=== PATIENT | female | born 1950 | race Caucasian/White ===

== ENCOUNTER → 2020-09-27 | Outpatient (CLI) | payer MEDICARE ==
[2014-07-18 18:20] VITALS: BP 139/66
--- NOTE | 2020-09-27 11:22 | RAD ---
Examination: Left Lower Extremity Venous Doppler Ultrasound History: pain Comparison: None Procedure: Man scale, color flow 2D and spectal waveform analysis images are obtained with and without compression in the area of the common femoral vein, superficial femoral vein - femoral vein junction, main femoral vein (superficial femoral vein) and popliteal vein. Veins of the proximal calf are also imaged. Findings: There is normal duplex flow, color flow and compressibility of all visualized vein segments. No evidence of deep venous thrombus is present. There is echogenicity identified in the greater saphenous vein from the level of the knee to the mid calf region likely superficial vein thrombosis. Impression: 1.No evidence of DVT in the visualized left lower extremity venous system. 2. Superficial vein thrombosis identified in the greater saphenous vein below the knee. Electronically signed by: Richy Cervantes MD (09/27/2020 11:19 AM) [id number]
== END ==
LOC: US 10:03
PROVIDERS: ATTEND Family Medicine
DX: I82.812 Embolism and thrombosis of superficial veins of left lower extremity (principal)
CPT/HCPCS: 93971

== ENCOUNTER → 2020-10-07 | Outpatient (CLI) | payer MEDICARE ==
[2014-07-18 18:20] VITALS: BP 139/66
--- NOTE | 2020-10-07 13:36 | RAD ---
Left lower extremity venous Doppler ultrasound History: Reason: PAIN IN LEFT LEG / Spl. Instructions: / History: Comparison: None. Procedure: Color flow Doppler, Doppler spectral analysis, and 2D images are obtained with and without compression in the area of the common femoral vein, superficial femoral vein - femoral vein junction, main femoral vein (superficial femoral vein) and popliteal vein. Veins of the proximal calf are also imaged. Findings: There is normal color flow, augmentation, and compressibility of all visualized vein segments. No evidence of deep venous thrombus is present. There is partially occlusive thrombus with incomplete compressibility of a branch of the greater saphenous vein in the anterior calf at the knee. IMPRESSION: 1. No evidence of left lower extremity deep venous thrombosis. 2. There is superficial thrombophlebitis of a branch of the greater saphenous vein in the anterior calf at the knee. Electronically signed by: Robb Diaz MD (10/07/2020 1:33 PM) LEENA
== END ==
LOC: US 12:50
PROVIDERS: ATTEND Family Medicine
DX: I80.252 Phlebitis and thrombophlebitis of left calf muscular vein (principal)
CPT/HCPCS: 93971

== ENCOUNTER → 2021-06-26 | Outpatient (CLI) | payer MEDICARE ==
[2014-07-18 18:20] VITALS: BP 139/66
--- NOTE | 2021-06-26 13:01 | RAD ---
EXAM: CHEST 2 VIEWS. HISTORY: Cough. COMPARISON: 07/18/2014. FINDINGS: Frontal and lateral views of the chest are obtained. There are no confluent infiltrates. There is no pneumothorax or pleural effusion. The heart is not en larged. IMPRESSION: 1. No confluent infiltrates. Electronically signed by: Jennifer Bernal MD (06/26/2021 12:59 PM) [id number]
== END ==
LOC: RAD 11:34
PROVIDERS: ATTEND Family Medicine
DX: R05 Cough (principal)
CPT/HCPCS: 71046

== ENCOUNTER → 2022-02-11 | Outpatient (CLI) | payer MEDICARE ==
[2014-07-18 18:20] VITALS: BP 139/66
--- NOTE | 2022-02-12 11:43 | RAD ---
EXAM: DUAL ENERGY X-RAY ABSORPTIOMETRY (DEXA). HISTORY: Postmenopausal screening. FINDINGS: The lowest measured T-score is 0.0 in the right femoral neck, based on a bone mineral densi ty of 1.041 g/cm^2. Refer to the worksheets for full detail. No comparison examinations are available. IMPRESSION: Normal. Bone mineral density yields a T-score of -1.0 or greater. Fracture risk is low. FRAX was not calculated. METHODOLOGY: Dual energy x-ray absorptiometry was performed to measure bone mineral density. The foll owing analysis is based on the 2019 Official Positions of the International Society for Clinical Dens itometry: Measurements of the hips and the average of L1-L4 are preferred. When the spine and/or hip cannot be feasibly measured or interpreted, or in the setting of hyperparathyroidism, distal radial bone minera l density may be measured. The lumbar spine T-score is based on the average bone mineral density of L1-L4. In the setting of art ifact or anatomic abnormality, some lumbar levels may be excluded, and the remaining levels used for calculation. A single lumbar level is not used for diagnosis, and if only a single level is available for assessment, another anatomic site will be used to assign a diagnosis. The hip T-score is based on the bone mineral density measurement of the femoral neck or total proxima l femur of either side, whichever is lowest. Bilateral mean values are not used for diagnosis. The forearm T-score is derived from 33% of the distal radius of the nondominant forearm. For postmenopausal and perimenopausal women, and men age 50 or older, of all ethnic groups, T-scores are calculated through comparison of the current measurement with the NHANES III database standard fo r females aged 20-29 years. The lowest T-score of the evaluated anatomic sites is used to a ssign a diagnosis based on the World Health Organization densitometric classification. In premenopausal females and males younger than age 50, a Z-score is calculated based on population s pecific reference data for patient sex and self-reported ethnicity. Electronically signed by: Jennifer Bernal MD (02/11/2022 7:38 PM) [facility]
== END ==
LOC: DXRAD 12:44
PROVIDERS: ATTEND Family Medicine
DX: Z78.0 Asymptomatic menopausal state (principal)
CPT/HCPCS: 77080